=== PATIENT | male | born 1955 | race Two or more races ===

== ENCOUNTER 2022-01-08 09:30 | Inpatient (IN) | payer OTHER ==
[~2022-01-08] VITALS: Ht 170.2 cm; Wt 78.0 kg
[2022-01-08] MEDS ORDERED: CARVEDILOL ER40 MG (12:33)
[2022-01-08] MEDS ORDERED: FERROUS FUMARAT89 MG (12:33)
[2022-01-14] MEDS ORDERED: FERROUS SULFAT325 M2 (13:22)
[2022-01-14] MEDS ORDERED: CARVEDILOL3.125 M1 (13:22)
[2022-01-19] MEDS ORDERED: HYOSCYAMINE0.125 M1 SL (08:36)
[2022-01-19] MEDS ORDERED: OXYC1TAB9 PO (08:37)
== END 2022-01-19 14:56 | disposition home or self-care (01) | DRG 330 ==
LOC: SURH 01-14 07:00 → SURG 01-14 07:24 → O/R 01-14 07:24 → SURH 01-14 09:30 → SURG 01-14 14:30
PROVIDERS: ADMIT Surgery; ATTEND Surgery
PROC: 07TB0ZZ Resection of Mesenteric Lymphatic, Open Approach (ICD-10-PCS; 2022-01-14)
PROC: 0DTF0ZZ Resection of Right Large Intestine, Open Approach (ICD-10-PCS; principal; 2022-01-14 07:00)
DX: C18.0 Malignant neoplasm of cecum (principal); I85.00 Esophageal varices without bleeding; R97.0 Elevated carcinoembryonic antigen [CEA]; K74.60 Unspecified cirrhosis of liver; D64.9 Anemia, unspecified; D69.6 Thrombocytopenia, unspecified; Z53.31 Laparoscopic surgical procedure converted to open procedure